=== PATIENT | male | born 1970 | race Caucasian/White ===

== ENCOUNTER 2018-03-21 12:09 | Emergency (ER) | payer MEDICAID ==
[~2018-03-21] VITALS: Ht 185.4 cm; Wt 105.2 kg
[2018-03-21] MEDS ORDERED: OXYCONTIN15 MG PO (12:30)
[2018-03-21] MEDS ORDERED: BRINTELLIX20 MG PO (12:31)
[2018-03-21] MEDS ORDERED: PROZAC20 MG PO (12:32)
[2018-03-21] MEDS ORDERED: NEURONTIN600 MG PO (12:32)
[2018-03-21] MEDS ORDERED: ZANTAC300 MG PO (12:32)
[2018-03-21] MEDS ORDERED: [UNRECOGNIZED DRUG - OTHER] PO (12:35)
[2018-03-21] MEDS ORDERED: NABUMETONE 750750 M1 PO (14:03)
[2018-03-21 14:36] VITALS: BP 138/90
== END 2018-03-21 14:37 | disposition home or self-care (01) ==
LOC: M.ERS 12:09
DX: S93.401A Sprain of unspecified ligament of right ankle, initial encounter (principal); S93.601A Unspecified sprain of right foot, initial encounter; F32.9 Major depressive disorder, single episode, unspecified; Z85.89 Personal history of malignant neoplasm of other organs and systems; F17.200 Nicotine dependence, unspecified, uncomplicated; Z88.5 Allergy status to narcotic agent; W10.9XXA Fall (on) (from) unspecified stairs and steps, initial encounter; Y93.89 Activity, other specified; Y92.89 Other specified places as the place of occurrence of the external cause; Y99.8 Other external cause status